=== PATIENT | male | born 1990 | race Caucasian/White ===

== ENCOUNTER 2018-08-01 09:13 | Emergency (ER) | payer OTHER ==
[~2018-08-01] VITALS: Ht 167.6 cm; Wt 90.7 kg
[2018-08-01 09:29] VITALS: BP 123/72
[2018-08-01] MEDS ORDERED: IV NORMAL SALINE 1,000ML 1,000 ML IV ONE (09:30)
--- NOTE | 2018-08-01 09:43 | PHYS DOC ---
Past History Past Medical History: No Pertinent History Past Surgical History: No Surgical History Alcohol Use: Occasionally Drug Use: None Adult General Chief Complaint Chief Complaint: MULTIPLE COMPLAINTS HPI HPI 27-year-old male presents with recent headache and abdominal pain. The patient had an episode last evening where he had some blurry vision followed by right hand tingling. An hour later he developed a headache in the top of his head. This spontaneously resolved after Tylenol and an hour. Later on that night, the patient woke with severe central abdominal pain that was 10 out of 10. It also resolved spontaneously in about 30 minutes. The patient now has generalized abdominal soreness. Since he is never had symptoms like this, he decided he should come in for evaluation. He is feeling normal at this time except for the abdominal soreness. He denies fever or chills. He did not have any vomiting or diarrhea. He does have intermittent constipation, but has never needed medication. Review of Systems Review of Systems Constitutional: Denies fever or chills [] Eyes: change in visual acuity, resolved[] HENT: Denies nasal congestion or sore throat [] Respiratory: Denies cough or shortness of breath [] Cardiovascular: No additional information not addressed in HPI [] GI: Mild abdominal pain. Denies nausea, vomiting, bloody stools or diarrhea [] : Denies dysuria or hematuria [] Musculoskeletal: Denies back pain or joint pain [] Integument: Denies rash or skin lesions [] Neurologic: Headache with right hand tingling, resolved [] Endocrine: Denies polyuria or polydipsia [] All other systems were reviewed and found to be within normal limits, except as documented in this note. Current Medications Current Medications Current Medications Medications (Trade) Dose Ordered Sig/[facility] Start Time Stop Time Status Last Admin Dose Admin Sodium Chloride 1,000 ml @ 1,000 mls/hr 1X ONCE 08/01/18 09:30 08/01/18 10:29 UNV Physical Exam Physical Exam Constitutional: Well developed, well nourished, no acute distress, non-toxic appearance. [] HENT: Normocephalic, atraumatic, bilateral external ears normal, oropharynx moist, no oral exudates, nose normal. [] Eyes: PERRLA, EOMI, conjunctiva normal, no discharge. [] Neck: Normal range of motion, no tenderness, supple, no stridor. [] Cardiovascular:Heart rate regular rhythm, no murmur [] Lungs & Thorax: Bilateral breath sounds clear to auscultation [] Abdomen: Bowel sounds normal, soft, no tenderness, no masses, no pulsatile masses. [] Skin: Warm, dry, no erythema, no rash. [] Back: No tenderness, no CVA tenderness. [] Extremities: No tenderness, no cyanosis, no clubbing, ROM intact, no edema. [] Neurologic: Alert and oriented X 3, normal motor function, normal sensory function, no focal deficits noted. [] Psychologic: Affect normal, judgement normal, mood normal. [] Current Patient Data Vital Signs Vital Signs Date Time Temp Pulse Resp B/P (MAP) Pulse Ox O2 Delivery O2 Flow Rate FiO2 08/01/18 09:29 98.0 68 18 98 Room Air EKG EKG [] Radiology/Procedures Radiology/Procedures [] Impressions: Abdominal radiographs: 08/01/2018 9:33 AM Reason for study: Abdominal pain. Comparison: None. Technique: Supine radiograph of the abdomen is provided. Findings: No dilated loops of small or large bowel are identified supine technique limits evaluation for pneumoperitoneum. No unexpected calcific densities in the abdomen or pelvis are identified. The visualized osseous structures are intact. IMPRESSION Nonobstructive bowel gas pattern. Electronically signed by: Pallavi Velasquez MD (08/01/2018 10:15 AM) [id number] DICTATED AND SIGNED BY: PALLAVI VELASQUEZ MD DATE: 08/01/18 1015 CC: ENA GRIFFIN DO; KRISTY UP PA-C ~ Course & Med Decision Making Course & Med Decision Making Pertinent Labs and Imaging studies reviewed. (See chart for details) The patient's labs are unremarkable. His KUB is unremarkable. Motrin as they would've caused patient's episode. He does have some stool retention in the hepatic flexure. I do not see signs of anything that is concerning at this point. The patient does not really have risk factors. He is not taking supplements, frequently drinking alcohol, or doing drugs. I believe he can be safely discharged at this time. If the symptoms return, he should follow-up with his primary care physician or return to the emergency room. [] Dragon Disclaimer Dragon Disclaimer This electronic medical record was generated, in whole or in part, using a voice recognition dictation system. Departure Departure: Impression: Primary Impression: Headache Additional Impression: Abdominal pain Disposition: HOME, SELF-CARE Condition: STABLE Referrals: KRISTY UP PA-C (PCP) Patient Instructions: Abdominal Pain, [id number], General Headache Without Cause, [id number] Problem Qualifiers Primary Impression: Headache Headache type: unspecified Headache chronicity pattern: acute headache Intractability: not intractable Qualified Codes: R51 - Headache Additional Impression: Abdominal pain Abdominal location: generalized Qualified Codes: R10.84 - Generalized abdominal pain ENA GRIFFIN DO August 01, 2018 09:43
[2018-08-01 09:52] LABS: BASO # 0.1 x10^3/uL (0.0-0.2); BASO % 1 % (0-3); EOS # 0.4 x10^3/uL (0.0-0.7); EOS % 4 % (0-3); HEMATOCRIT 46.5 % (39.0-53.0); HEMOGLOBIN 15.9 g/dL (13.0-17.5); LYMPH % 20 % (24-48); MEAN CORPUSCULAR HEMOGLOBIN 29 pg (25-35); MEAN CORPUSCULAR HGB CONC 34 g/dL (31-37); MEAN CORPUSCULAR VOLUME 86 fL (79-100); MONO # 0.5 x10^3/uL (0.0-1.1); MONO % 5 % (0-9); NEUT # 6.8 x10^3uL (1.8-7.7); NEUT % 70 % (31-73); PLATELET COUNT 229 x10^3/uL (140-400); RED BLOOD COUNT 5.42 x10^6/uL (4.30-5.70); RED CELL DISTRIBUTION WIDTH 13.6 % (11.5-14.5); WHITE BLOOD COUNT 9.7 x10^3/uL (4.0-11.0)
[2018-08-01 10:06] LABS: ALBUMIN 4.2 g/dL (3.4-5.0); ALBUMIN/GLOBULIN RATIO 1.3 (1.0-1.7); CALCIUM 9.4 mg/dL (8.5-10.1); CREATININE 1.2 mg/dL (0.7-1.3); GFR 72.6; POTASSIUM 3.6 mmol/L (3.5-5.1); TOTAL BILIRUBIN 0.6 mg/dL (0.2-1.0); TOTAL PROTEIN 7.4 g/dL (6.4-8.2)
--- NOTE | 2018-08-01 10:18 | RAD ---
Abdominal radiographs: 08/01/2018 9:33 AM Reason for study: Abdominal pain. Comparison: None. Technique: Supine radiograph of the abdomen is provided. Findings: No dilated loops of small or large bowel are identified supine technique limits evaluation for pneumoperitoneum. No unexpected calcific densities in the abdomen or pelvis are identified. The visualized osseous structures are intact. IMPRESSION Nonobstructive bowel gas pattern. Electronically signed by: Khadijah Velasquez MD (08/01/2018 10:15 AM) [id number]
[2018-08-01] MEDS ORDERED: LIDO:MAALOX 1:1 20 ML SINGLE DOSE. PO ONE (11:00)
== END 2018-08-01 10:45 | disposition home or self-care (01) ==
LOC: ER 09:22
DX: R10.84 Generalized abdominal pain (principal); R51 Headache; H53.8 Other visual disturbances; R20.2 Paresthesia of skin
CPT/HCPCS: 36415; 74018; 80053; 85025; 99285; J7030